=== PATIENT | female | born 1955 | race Caucasian/White ===

== ENCOUNTER 2019-06-18 04:03 | Inpatient (IN) | payer MEDICARE, OTHER ==
[~2019-06-18] VITALS: Ht 165.1 cm; Wt 72.6 kg
[2019-06-18 04:47] LABS: BASOPHILS % 0.3 % (0.0-2.0); EOSINOPHILS % 1.4 % (0.0-5.0); HEMATOCRIT. 34.8 % (36.0-48.0); LYMPHOCYTES % 18.2 % (20.0-50.0); MEAN CORPUSCULAR HEMOGLOBIN 33.9 pg (28.0-32.0); MEAN CORPUSCULAR VOLUME 98.6 fL (81.0-99.0); MEAN PLATELET VOLUME 8.1 fl (7.4-10.4); MONOCYTES % 13.1 % (2.0-8.0); RED BLOOD CELL COUNT 3.53 mill/uL (4.2-5.4); RED CELL DISTRIBUTION WIDTH 14.4 % (11.6-14.6)
[2019-06-18 04:52] LABS: CHLORIDE 106 mEq/L (98-107)
[2019-06-18 05:28] LABS: CLARITY URINE CLEAR (CLEAR); COLOR URINE YELLOW (YELLOW); KETONES URINE NEGATIVE (NEGATIVE); LEUKOCYTE ESTERASE URINE NEGATIVE (NEGATIVE); NITRITE URINE NEGATIVE (NEGATIVE); OCCULT BLOOD URINE NEGATIVE (NEGATIVE); PROTEIN URINE NEGATIVE (NEGATIVE); SPECIFIC GRAVITY URINE 1.015 (1.005-1.030)
[2019-06-18] MEDS ORDERED: HYDROCODONE/ACETAMINOPHEN 5/325MG TABLET PO ONE (05:45)
[2019-06-18] MEDS ORDERED: MAGNESIUM/ALUMINUM HYDROXIDE/SIMETHICONE 30ML UDC PO PRN (07:45)
[2019-06-18] MEDS ORDERED: NITROGLYCERIN 0.4MG TABLET SL SL PRN (07:45)
[2019-06-18] MEDS ORDERED: ONDANSETRON HCL 4MG/2ML INJ IV PRN (07:45)
[2019-06-18] MEDS ORDERED: ACETAMINOPHEN 325MG TABLET PO PRN (07:45)
[2019-06-18] MEDS ORDERED: DOCUSATE SODIUM 100MG CAPSULE PO PRN (07:45)
[2019-06-18] MEDS ORDERED: CLONIDINE 0.1MG TABLET PO PRN (07:45)
[2019-06-18] MEDS ORDERED: IPRATROPIUM/ALBUTEROL 0.5-3(2.5)MG/3ML NEB HHN PRN (07:45)
[2019-06-18 08:15] VITALS: BP 102/65
[2019-06-18] MEDS ORDERED: TRIA1TAB92 PO (08:38)
[2019-06-18] MEDS ORDERED: OXYC-662 PO (08:38)
[2019-06-18] MEDS ORDERED: TIZA4CAP6 PO (08:38)
[2019-06-18] MEDS ORDERED: NITR0.4T49 SL (08:38)
[2019-06-18] MEDS ORDERED: DOCU-138 PO (08:39)
[2019-06-18] MEDS ORDERED: ASPI-1393 PO (08:39)
[2019-06-18] MEDS ORDERED: SYSOS BOTHEYE (08:39)
[2019-06-18] MEDS: FAMOTIDINE 20MG TABLET PO SCH ×2 (09:47→22:19)
[2019-06-18] MEDS: TRAMADOL 50MG TABLET PO PRN ×3 (09:47→22:16)
[2019-06-18] MEDS: GUAIFENESIN 200MG/10ML SUGAR FREE UDC PO PRN ×3 (10:07→17:52)
[2019-06-18] MEDS ORDERED: INFLUENZA VIRUS VACCINE(AFLURIA) 0.5ML SYR IM ONE ×2 (10:30→13:00)
[2019-06-18 10:38] VITALS: BP 102/65
[2019-06-18 12:00] VITALS: BP 140/77
[2019-06-18 12:00] LABS: INR 1.1; PROTHROMBIN TIME 11.7 sec (9.6-11.0)
[2019-06-18 12:06] LABS: ETHANOL BLOOD < 10 mg/dL
[2019-06-18 12:07] LABS: TOTAL IRON BINDING CAPACITY 366 ug/dL (250-450)
[2019-06-18 12:08] LABS: LDL CHOLESTEROL 47 mg/dL (5-100)
[2019-06-18 12:10] LABS: HDL CHOLESTEROL 67 mg/dL (40-59)
[2019-06-18 12:58] LABS: VITAMIN B12 SERUM 427 pg/mL (211-911)
[2019-06-18 13:00] LABS: FOLIC ACID (FOLATE) SERUM > 20.00 ng/mL (>5.38)
[2019-06-18 15:02] LABS: *AMPHETAMINES SCREEN URINE NEGATIVE (NEGATIVE); *BARBITURATES SCREEN URINE NEGATIVE (NEGATIVE); *BENZODIAZEPINES SCREEN URINE NEGATIVE (NEGATIVE); *COCAINE SCREEN URINE NEGATIVE (NEGATIVE); CANNABINOID URINE SCREEN NEGATIVE (NEGATIVE); METHADONE URINE SCREEN NEGATIVE (NEGATIVE); OPIATES URINE SCREEN NEGATIVE (NEGATIVE); PHENCYCLIDINE URINE SCREEN NEGATIVE (NEGATIVE)
[2019-06-18 16:00] VITALS: BP 186/96
[2019-06-18 16:45] LABS: CREATINE KINASE 180 IU/L (26-192)
[2019-06-18 16:46] LABS: CREATINE KINASE MB FRACTION < 1.0 ng/mL (0.5-3.6)
[2019-06-18] MEDS: CEFTRIAXONE 1 G PREMIX 50 ML IV SCH (18:07)
[2019-06-18] MEDS: AZITHROMYCIN 500 MG in DEXT 5% WATER 250 ML IV SCH (18:45)
[2019-06-18 20:00] VITALS: BP 101/69
[2019-06-18] MEDS: ZOLPIDEM TARTRATE 5MG TABLET PO PRN (22:30)
[2019-06-19] VITALS: BP 98/55
[2019-06-19 04:00] VITALS: BP 121/80
[2019-06-19] MEDS: LORAZEPAM 0.5MG TABLET PO PRN (04:29)
[2019-06-19] MEDS: TRAMADOL 50MG TABLET PO PRN ×4 (04:30→23:40)
[2019-06-19 06:53] LABS: BASOPHILS % 0.3 % (0.0-2.0); EOSINOPHILS % 2.5 % (0.0-5.0); HEMATOCRIT. 33.5 % (36.0-48.0); HEMOGLOBIN. 11.6 g/dL (12.0-16.0); LYMPHOCYTES % 21.6 % (20.0-50.0); MEAN CORPUSCULAR HEMOGLOBIN 34.1 pg (28.0-32.0); MEAN CORPUSCULAR VOLUME 98.3 fL (81.0-99.0); MEAN PLATELET VOLUME 9.1 fl (7.4-10.4); MONOCYTES % 13.7 % (2.0-8.0); NEUTROPHILS % 61.9 % (40.0-76.0); RED BLOOD CELL COUNT 3.41 mill/uL (4.2-5.4); RED CELL DISTRIBUTION WIDTH 13.9 % (11.6-14.6)
[2019-06-19 06:56] LABS: PLATELET 37 x1000/uL (130-400)
[2019-06-19 07:08] LABS: CHLORIDE 105 mEq/L (98-107)
[2019-06-19 07:16] LABS: HDL CHOLESTEROL 61 mg/dL (40-59)
[2019-06-19 07:17] LABS: LDL CHOLESTEROL 45 mg/dL (5-100)
[2019-06-19 07:19] LABS: CREATINE KINASE 90 IU/L (26-192)
[2019-06-19 07:39] LABS: CREATINE KINASE MB FRACTION < 1.0 ng/mL (0.5-3.6)
[2019-06-19 08:00] VITALS: BP 111/61
[2019-06-19] MEDS: FAMOTIDINE 20MG TABLET PO SCH ×2 (10:09→22:25)
[2019-06-19 12:00] VITALS: BP 122/69
[2019-06-19 13:10] LABS: PLATELET ESTIMATE MARKEDLY DECREASED
[2019-06-19] MEDS ORDERED: REGADENOSON 0.4 MG/5 ML IV NR (14:30)
[2019-06-19 16:00] VITALS: BP 116/68
[2019-06-19] MEDS: CEFTRIAXONE 1 G PREMIX 50 ML IV SCH (17:22)
[2019-06-19] MEDS: AZITHROMYCIN 500 MG in DEXT 5% WATER 250 ML IV SCH (18:29)
[2019-06-19 20:00] VITALS: BP 105/68
[2019-06-19] MEDS: ZOLPIDEM TARTRATE 5MG TABLET PO PRN (22:25)
[2019-06-19] MEDS: MUPIROCIN 2% OINT 22GM NS SCH (22:25)
[2019-06-19] MEDS: GUAIFENESIN 200MG/10ML SUGAR FREE UDC PO PRN (22:26)
[2019-06-19 23:33] LABS: PLATELET 36 x1000/uL (130-400)
[2019-06-20] VITALS: BP 109/70
[2019-06-20 04:00] VITALS: BP 107/72
[2019-06-20] MEDS: TRAMADOL 50MG TABLET PO PRN ×2 (05:55→22:31)
[2019-06-20] MEDS: MUPIROCIN 2% OINT 22GM NS SCH ×2 (09:00→20:34)
[2019-06-20] MEDS: FAMOTIDINE 20MG TABLET PO SCH ×2 (09:00→20:34)
[2019-06-20] MEDS ORDERED: REGADENOSON 0.4 MG/5 ML IV ONE (09:20)
[2019-06-20 12:00] VITALS: BP 125/75
[2019-06-20] MEDS: KETOROLAC 30MG/ML VIAL IV PRN ×3 (13:26→20:30)
[2019-06-20 16:00] VITALS: BP 108/58
[2019-06-20] MEDS: CEFTRIAXONE 1 G PREMIX 50 ML IV SCH (17:23)
[2019-06-20] MEDS: AZITHROMYCIN 500 MG in DEXT 5% WATER 250 ML IV SCH (18:03)
[2019-06-20 20:00] VITALS: BP 124/74
[2019-06-20] MEDS: GUAIFENESIN 200MG/10ML SUGAR FREE UDC PO PRN (20:35)
[2019-06-20] MEDS: ZOLPIDEM TARTRATE 5MG TABLET PO PRN (22:31)
[2019-06-21] VITALS: BP 123/74
[2019-06-21] MEDS: LORAZEPAM 0.5MG TABLET PO PRN (02:07)
[2019-06-21] MEDS: KETOROLAC 30MG/ML VIAL IV PRN ×3 (03:38→14:58)
[2019-06-21 04:00] VITALS: BP 122/52
[2019-06-21] MEDS: TRAMADOL 50MG TABLET PO PRN ×2 (06:13→21:08)
[2019-06-21 07:53] VITALS: BP 126/87
[2019-06-21] MEDS: MUPIROCIN 2% OINT 22GM NS SCH ×2 (08:22→21:00)
[2019-06-21] MEDS: FAMOTIDINE 20MG TABLET PO SCH ×2 (08:22→20:58)
[2019-06-21 11:39] VITALS: BP 93/46
[2019-06-21 15:32] VITALS: BP 109/61
[2019-06-21] MEDS: CEFTRIAXONE 1 G PREMIX 50 ML IV SCH (17:31)
[2019-06-21] MEDS: AZITHROMYCIN 500 MG in DEXT 5% WATER 250 ML IV SCH (18:58)
[2019-06-21 20:00] VITALS: BP 110/62
[2019-06-21] MEDS: ZOLPIDEM TARTRATE 5MG TABLET PO PRN (22:16)
[2019-06-22 00:29] VITALS: BP 123/79
[2019-06-22] MEDS: KETOROLAC 30MG/ML VIAL IV PRN ×3 (01:30→17:57)
[2019-06-22 04:40] VITALS: BP 132/74
[2019-06-22 06:48] LABS: CHLORIDE 107 mEq/L (98-107)
[2019-06-22 07:05] LABS: HEMATOCRIT. 35.9 % (36.0-48.0); HEMOGLOBIN. 12.2 g/dL (12.0-16.0); MEAN CORPUSCULAR HEMOGLOBIN 33.2 pg (28.0-32.0); MEAN CORPUSCULAR VOLUME 98.3 fL (81.0-99.0); MEAN PLATELET VOLUME 9.9 fl (7.4-10.4); PLATELET 53 x1000/uL (130-400); RED BLOOD CELL COUNT 3.66 mill/uL (4.2-5.4); RED CELL DISTRIBUTION WIDTH 13.8 % (11.6-14.6)
[2019-06-22 08:12] VITALS: BP 113/77
[2019-06-22] MEDS: MUPIROCIN 2% OINT 22GM NS SCH ×2 (08:26→21:28)
[2019-06-22] MEDS: FAMOTIDINE 20MG TABLET PO SCH ×2 (08:26→21:27)
[2019-06-22 11:33] LABS: PLATELET ESTIMATE MARKEDLY DECREASED
[2019-06-22 11:51] VITALS: BP 115/80
[2019-06-22] MEDS: TRAMADOL 50MG TABLET PO PRN (11:51)
[2019-06-22 16:06] VITALS: BP 117/75
[2019-06-22] MEDS: CEFTRIAXONE 1 G PREMIX 50 ML IV SCH (17:55)
[2019-06-22] MEDS: AZITHROMYCIN 500 MG TABLET PO SCH (17:56)
[2019-06-22 20:00] VITALS: BP 121/70
[2019-06-22] MEDS: ZOLPIDEM TARTRATE 5MG TABLET PO PRN (21:49)
[2019-06-23] VITALS: BP 124/56
[2019-06-23] MEDS: KETOROLAC 30MG/ML VIAL IV PRN ×5 (01:10→21:56)
[2019-06-23 04:00] VITALS: BP 128/74
[2019-06-23 08:00] VITALS: BP 139/91
[2019-06-23] MEDS: MUPIROCIN 2% OINT 22GM NS SCH ×2 (08:42→21:52)
[2019-06-23] MEDS: FAMOTIDINE 20MG TABLET PO SCH ×2 (08:42→21:00)
[2019-06-23 12:00] VITALS: BP 150/92
[2019-06-23 16:00] VITALS: BP 154/85
[2019-06-23] MEDS: CEFTRIAXONE 1 G PREMIX 50 ML IV SCH (17:17)
[2019-06-23] MEDS: AZITHROMYCIN 500 MG TABLET PO SCH (17:17)
[2019-06-23 20:32] VITALS: BP 155/99
[2019-06-23] MEDS: LORAZEPAM 0.5MG TABLET PO PRN (23:06)
[2019-06-24] MEDS: TRAMADOL 50MG TABLET PO PRN ×3 (01:58→21:18)
[2019-06-24] MEDS: KETOROLAC 30MG/ML VIAL IV PRN ×3 (02:39→18:42)
[2019-06-24 04:00] VITALS: BP 141/68
[2019-06-24 08:00] VITALS: BP 125/78
[2019-06-24] MEDS: FAMOTIDINE 20MG TABLET PO SCH ×2 (08:36→21:17)
[2019-06-24] MEDS: MUPIROCIN 2% OINT 22GM NS SCH ×2 (17:27→21:21)
[2019-06-24] MEDS: AZITHROMYCIN 500 MG TABLET PO SCH (17:27)
[2019-06-24] MEDS: CEFTRIAXONE 1 G PREMIX 50 ML IV SCH (17:27)
[2019-06-24] MEDS ORDERED: KETOROLAC 30MG/ML VIAL IV PRN (18:30)
[2019-06-24 20:24] VITALS: BP 134/77
[2019-06-24] MEDS: LORAZEPAM 0.5MG TABLET PO PRN (22:54)
[2019-06-25 00:35] VITALS: BP 119/74
[2019-06-25] MEDS: TRAMADOL 50MG TABLET PO PRN ×2 (06:52→12:37)
[2019-06-25 08:39] VITALS: BP 122/75
[2019-06-25] MEDS: FAMOTIDINE 20MG TABLET PO SCH (09:37)
[2019-06-25] MEDS: KETOROLAC 30MG/ML VIAL IV PRN (09:39)
[2019-06-25 13:54] VITALS: BP 124/83
[2019-06-25] MEDS ORDERED: CEFTRIAXONE 1,000 MG in DEXTROSE 5% WATER 50 ML IV SCH (18:00)
== END 2019-06-25 14:40 | disposition home or self-care (01) | DRG 292 ==
LOC: ER 04:03 → EDBEDREQ 05:44 → EDBEDREQTM 05:44 → 6WST 06:07 → EDBEDREQTM 06:09 → EDBEDREQ 06:09 → ENRESERV 07:02
PROVIDERS: ADMIT Internal Medicine; ATTEND Internal Medicine
PROC: 5A09357 Assistance with Respiratory Ventilation, Less than 24 Consecutive Hours, Continuous Positive Airway Pressure (ICD-10-PCS; principal; 2019-06-18)
DX: I11.0 Hypertensive heart disease with heart failure (principal); D61.818 Other pancytopenia; E44.1 Mild protein-calorie malnutrition; I50.30 Unspecified diastolic (congestive) heart failure; M54.5 Low back pain; G89.29 Other chronic pain; R50.9 Fever, unspecified; Z59.0 Homelessness; Z68.26 Body mass index [BMI] 26.0-26.9, adult
CPT/HCPCS: 36415; 71045; 78452; 80048; 80061; 80305; 80320; 81003; 82550; 82553; 82607; 82746; 83036; 83540; 83550; 83605; 83735; 83880; 84484; 90686; 93005; 93017; 93306; 93970; 94660; 97116; 97162; 97166; 99285; A9500; C1893; J0456; J0696; J1885; J2785; J7040; J7060; G0480